=== PATIENT | male | born 2000 | race African-American/Black ===

== ENCOUNTER 2024-12-13 10:55 | Emergency (ER) | payer SELFPAY ==
--- NOTE | ~2024-12-13 | XR_ITS ---
EXAMINATION: XR tibia fibula LT 2V DATE: 12/13/2024 12:35 INDICATION: Left lower leg bruising. TECHNIQUE: 2 views of left tibia and fibula on 3 radiographs were obtained. COMPARISON: None. FINDINGS: Alignment is normal. No fracture. Joint spaces are normal. IMPRESSION: 1. No fracture. Reviewed, dictated and finalized at location L. IMPRESSION: 1. No fracture.
[2024-12-13 11:04] VITALS: BP 128/75; PULSE 95; RESP 16; TEMP 36.5; O2SAT 94
--- NOTE | 2024-12-13 12:46 | ED.LOWEXIN ---
HPI - Extremity Injury (Lower) General Chief Complaint: Extremity Injury, Lower Stated Complaint: L. leg, no trauma Time Seen by Provider: 12/13/24 12:02 History of Present Illness HPI Narrative: 23-year-old otherwise healthy male presenting to the emergency depart for evaluation of left leg pain. He has some minor swelling and erythema overlying his anterior fraser on the left side. No obvious fracture, no step-offs deformities. Distal pulses are 2+, no overlying skin changes such as induration, fluctuance, purulent drainage. No ulceration. No trauma that he reports but he does kick in his sleep and thinks he may have banged it on something. Did not take anything prior to arrival to the emergency department has not tried any anti-inflammatories. Otherwise healthy. Related Data Allergies Allergy/AdvReac Type Severity Reaction Status Date / Time No Known Allergies Allergy Verified 12/13/24 10:57 Review of Systems Review of Systems: As reviewed above in HPI Exam Narrative: GENERAL: [Well-appearing, well-nourished, and in no acute distress.] HEAD: [Normocephalic, atraumatic.] EYES: [PERRLA and EOMI.] ENT: Nares clear, no rhinorrhea or epistaxis. Mucous membranes moist. NECK: Supple. CHEST: [Clear to auscultation. No respiratory distress.] HEART: [Regular rate and rhythm]. No murmur heard. [Normal peripheral pulses.] ABDOMEN: [Soft, nondistended], [nontender], [No rigidity or guarding] EXTREMITIES: Minor area of swelling and minimal tenderness with palpation to the left anterior fraser without any overlying skin changes such as induration, dimpling, ulceration, bleeding. No calf swelling, no thigh swelling. No popliteal masses. 2+ dorsalis pedis pulse. Good range of motion SKIN: Warm, dry, no rash. NEURO: [No focal deficits]. Alert and oriented [x3.] PSYCH: [Normal mood and affect.] Course Vital Signs Vital signs: Vital Signs Temperature 36.5 C 12/13/24 11:04 Pulse Rate 95 12/13/24 11:04 Respiratory Rate 16 12/13/24 11:04 Blood Pressure 128/75 12/13/24 11:04 Pulse Oximetry 94 12/13/24 11:04 Oxygen Delivery Room Air 12/13/24 11:04 Temperature 36.5 C 12/13/24 11:04 Pulse Rate 95 12/13/24 11:04 Respiratory Rate 16 12/13/24 11:04 Blood Pressure 128/75 12/13/24 11:04 Pulse Oximetry 94 12/13/24 11:04 Oxygen Delivery Room Air 12/13/24 11:04 MDM - Extremity Injury (Lower) MDM Narrative Medical decision making narrative: 23-year-old male presenting with left anterior fraser pain. He has a small area of tenderness and overlying swelling to his left fraser but no signs of infection, no signs of cellulitis. No signs of DVT. He is otherwise healthy, 2+ pulses and warm well-perfused extremity. Normal vital signs. X-rays of the tib and fib were obtained to assess for any occult injury, bone fracture or osseous process although very unlikely given his overall well appearance exam. Most likely patient has a musculoskeletal bruise from occult injury. X-rays were obtained and independently reviewed, no signs of osseous injury or fracture. He can be discharged home at this time with recommendations for anti-inflammatories. He was provided ibuprofen here in the emergency department. Patient is safe for discharge at this time. Medical Records Attestation: I reviewed the patient's medical records. Imaging Data Attestation: I personally reviewed and interpreted this imaging study as follows: My impression: Impressions Tibia/Fibula X-Ray 12/13/24 12:39 IMPRESSION: 1. No fracture. Discharge Plan Discharge Clinical Impression: Fraser injury Patient Disposition: Home, Self-Care Condition: Stable Instructions: Antibiotic Form Additional Instructions: Your x-ray shows no acute process. Appears to have a small bruise to fraser, no signs of infection. Tylenol and ibuprofen for pain control. Follow-up with regular doctor. Return with any concerns. Patient Language: Djiboutian Follow-up/Referrals: UNKNOWN,DOCTOR [Primary Care Provider] - Time of Disposition: 12:49
[2024-12-13] MEDS: IBUPROFEN 600 MG TABLET PO (13:15)
[2024-12-13 13:26] VITALS: RESP 18
== END 2024-12-13 13:27 | disposition home or self-care (01) ==
PROVIDERS: Emergency Provider Student in an Organized Health Care Education/Training Program
DX: S89.92XA Unspecified injury of left lower leg, initial encounter (principal)
CPT/HCPCS: 73590; 99283; A9270

== ENCOUNTER 2025-02-13 19:31 | Emergency (ER) | payer SELFPAY ==
--- NOTE | ~2025-02-13 | XR_ITS ---
XR wrist RT min 3V Ordering provider: Teodoro Lazaro History: . fall . Comparison: None. FINDINGS: BONES: No acute fracture or dislocation. No definite scaphoid fracture. JOINT SPACES: Normal. SOFT TISSUES: Normal. IMPRESSION: No acute osseous abnormality right wrist. Reviewed, dictated and finalized at location A.
[2025-02-13 20:01] VITALS: BP 132/75; PULSE 96; RESP 20; TEMP 36.7; O2SAT 99
--- NOTE | 2025-02-13 23:27 | ED.UPPEXIN ---
HPI - Extremity Injury (Upper) General Chief Complaint: Extremity Injury, Upper Stated Complaint: Injury to right wrist Time Seen by Provider: 02/13/25 23:33 History of Present Illness HPI narrative: Patient is a 24-year-old male who presents to the ER with right wrist pain. He denies any injury to the area. Patient reports he woke up this morning and it hurt to flex his wrist. He endorses full range of motion in his fingers. Patient denies any swelling or bruising to the area. He denies any trauma to the area but reports “maybe I hurt a yesterday. Patient denies any other medical history relevant to this ER visit. Related Data Allergies Allergy/AdvReac Type Severity Reaction Status Date / Time No Known Allergies Allergy Verified 02/13/25 19:31 Review of Systems Review of Systems: All systems reviewed & are unremarkable except as noted in HPI and below Exam Narrative: Const: General: cooperati ve, healthy appear ing, comfortable, no acute distress, well developed, a lert and well nour ished Nutritional Appearance: well nourished Orienta tion/consciousness : patient oriented x3 Limitations: no limitations HENMT: Head: normal to in spection Ears: he aring grossly norm al bilaterally and external ears nor mal Face/Nose/Sin us: Normal externa l nose present, No rmal nares present , Normal nasal muc ous membranes and turbinates present , normal facial ex am and face symmet pineda Face and sinu s: normal facial e xam and face symme tric Eyes: General: appearanc e normal, both eye s and all related structures Alignm ent and Position: alignment normal Periorbital: perio rbital findings no rmal Pupils: Equa l, round and react luis f pupils present EOM: EOMs intact bilaterally Neck: Neck: normal visua l inspection, full ROM, no lymphaden opathy and no meni ngeal signs Chest: Chest palpation & inspection: normal inspection of the chest Resp: Effort & Inspectio n: normal respirat ory effort and abl e to speak in comp lete sentences Au scultation: clear to auscultation bi laterally, no crac kles, no rales, no rhonchi and no wh eezes Cardio: Rate: regular rate Rhythm: regular rhythm Back/Spine/Pelvis: Cervical Spine: ce rvical ROM normal Skin: General skin exam: normal color and no rashes or lesio ns noted Lesions: no lesions Rashe s: no rashes Woun ds: no wounds Neuro: General: patient o riented x3, gait n ormal, tone normal , moves all extrem ities and no menin geal signs Crania l nerves: Yes Equa l, round and react luis f pupils present Cognition (Neuro ): normal cognitio n Speech: normal speech Gait exam (Neuro): Normal ga it present Extrem: General except R w rist: normal to in spection, full ROM , capillary refill normal and normal gait. R wrist ten derness with flexi on and extension, no edema, radial p ulse present and n ormal capillary re fill, no deformity no unusual warmth , no abrasions, no lacerations, no e cchymosis, no crep itus, no foreign b odies and no punct ure wound, increas ed pain with manip ulation although m aintains full ROM. Psych: Appearance: grossl y normal and well kempt Mental Stat us: mental status grossly normal Sp eech and movement: Normal speech and movement present and Clear speech p resent Affect: no rmal affect Attit ude: cooperative Course Vital Signs Vital signs: Vital Signs Temperature 36.7 C 02/13/25 20:01 Pulse Rate 96 02/13/25 20:01 Respiratory Rate 20 02/13/25 20:01 Blood Pressure 132/75 02/13/25 20:01 Pulse Oximetry 99 02/13/25 20:01 Oxygen Delivery Room Air 02/13/25 20:01 Temperature 36.8 C 02/13/25 23:44 Pulse Rate 92 02/13/25 23:44 Respiratory Rate 17 02/13/25 23:44 Blood Pressure 128/76 02/13/25 23:44 Pulse Oximetry 99 02/13/25 23:44 Oxygen Delivery Room Air 02/13/25 20:01 MDM - Extremity Injury (Upper) MDM Narrative Medical decision making narrative: Patient is a 24-year-old male who presents to the ER with right wrist pain. He denies any injury to the area. Patient reports he woke up this morning and it hurt to flex his wrist. He endorses full range of motion in his fingers. Patient denies any swelling or bruising to the area. He denies any trauma to the area but reports “maybe I hurt a yesterday. Patient denies any other medical history relevant to this ER visit. Imaging Ordered: R hand x-ray Medications Ordered: Toradol 60mg IM Results: No acute osseous abnormality right wrist. Diagnosis: Right wrist sprain Patient Education/Shared MDM: Results of imaging shared with patient. He will be given a dose of Toradol pain medication and his R wrist will be placed in an ADA wrap. Patient strongly advised to maintain hydration status upon discharge and follow-up with their PCP or orthopedics as needed. They will be discharged home with no new prescriptions (besides Ibuprofen). Strict return precautions provided. Patient verbalized understanding and is in agreement with plan. Vital signs stable at time of discharge. All questions answered. Differential Diagnosis Differential diagnosis: Likely sprain and strain of wrist, fracture of wrist and other (fracture of hand) Imaging Data Attestation: I personally reviewed and interpreted this imaging study as follows: Radiologist's impression: Impressions Wrist X-Ray 02/13/25 20:58 IMPRESSION: No acute osseous abnormality right wrist. Discharge Plan Discharge Clinical Impression: Sprain and strain of wrist Patient Disposition: Home Condition: Stable Instructions: Antibiotic Form, Wrist Sprain (ED) Additional Instructions: Please return to the ER with any worsening symptoms. Follow-up with primary care provider or orthopedic surgery as needed. You may take Tylenol and ibuprofen for pain control. Patient Language: Prydeinig Prescriptions: New ibuprofen 600 mg tablet 600 mg PO TID PRN (Reason: pain) Qty: 20 0RF Follow-up/Referrals: Hussain Brandon MD [Physician] - (orthopedics ) UNKNOWN,DOCTOR [Primary Care Provider] - Stand Alone Forms: Work/School Release IP Time of Disposition: 23:33
[2025-02-13] MEDS: KETOROLAC (*BKC) 60 MG/2 ML VIAL IM (23:41)
[2025-02-13 23:44] VITALS: BP 128/76; PULSE 92; RESP 17; TEMP 36.8; O2SAT 99
== END 2025-02-13 23:46 | disposition home or self-care (01) ==
LOC: ANHED 23:41
PROVIDERS: Emergency Provider Registered Nurse
DX: S63.501A Unspecified sprain of right wrist, initial encounter (principal); X58.XXXA Exposure to other specified factors, initial encounter
CPT/HCPCS: 73110; 96372; 99283; J1885

== ENCOUNTER 2025-08-08 14:26 | Emergency (ER) | payer SELFPAY ==
[2025-08-08 14:34] VITALS: BP 132/73; PULSE 99; RESP 16; TEMP 36.7; O2SAT 96
--- NOTE | 2025-08-08 16:17 | ED_ITS ---
HPI - General Adult General Chief complaint: Unspecified Stated complaint: requesting a work note Time Seen by Provider: 08/08/25 16:20 Source: patient Mode of arrival: ambulatory Limitations: no limitations History of Present Illness HPI narrative: Patient is a 24 y/o male who presents to the ED with c/o URI sx's. Patient reports having URI sx's for the past few days. States he first developed a sore throat, which has since progressed to cough, congestion, rhinorrhea, subjective fevers. Reports last night he lost his taste and smell. Feels as though his taste/smell have returned today. Has been taking nyquil for sx's. Denies SOB. Related Data Allergies Allergy/AdvReac Type Severity Reaction Status Date / Time No Known Allergies Allergy Verified 02/13/25 19:31 Review of Systems Review of Systems: All systems reviewed & are unremarkable except as noted in HPI. All systems reviewed & are unremarkable except as noted in HPI and below Exam Narrative: GENERAL: Well appearing, thin, non-toxic, in no acute distress. HEAD: Normocephalic, atraumatic. RESPIRATORY: Airway patent, respirations nonlabored. Clear to auscultation bilaterally, no rales, rhonchi, wheezing. No focal lung sounds CARDIOVASCULAR: Regular rate and rhythm without murmurs, rubs, or gallops. MUSCULOSKELETAL: Moves all extremities. No gross deformities. SKIN: Warm, dry, normal color. NEURO: A&O X3. Speech clear. Cranial nerves II-XII grossly intact. Steady gait. No ataxic movements. PSYCHIATRIC: Appropriate mood and affect. Normal interaction. Course Vital Signs Vital signs: Vital Signs Temperature 98.1 F 08/08/25 14:34 Pulse Rate 99 08/08/25 14:34 Respiratory Rate 16 08/08/25 14:34 Blood Pressure 132/73 08/08/25 14:34 Pulse Oximetry 96 08/08/25 14:34 Temperature 98.1 F 08/08/25 14:34 Pulse Rate 99 08/08/25 14:34 Respiratory Rate 16 08/08/25 14:34 Blood Pressure 132/73 08/08/25 14:34 Pulse Oximetry 96 08/08/25 14:34 Medical Decision Making MDM Narrative Medical decision making narrative: MSE by DANAE in triage. Care resumed by myself. Patient with a 2 day history of URI symptoms. Tested negative for influenza, RSV, COVID, strep. Discussed high likelihood of viral URI and management of such. Will discharge with prescription for Tessalon Perles, given return precautions. Given work note. Discharged in stable condition. Medical Records Medical records reviewed: Yes I reviewed the external patient's medical records. Vital Signs Vital Signs: Vital Signs Temperature 98.1 F 08/08/25 14:34 Pulse Rate 99 08/08/25 14:34 Respiratory Rate 16 08/08/25 14:34 Blood Pressure 132/73 08/08/25 14:34 Pulse Oximetry 96 08/08/25 14:34 Temperature 98.1 F 08/08/25 14:34 Pulse Rate 99 08/08/25 14:34 Respiratory Rate 16 08/08/25 14:34 Blood Pressure 132/73 08/08/25 14:34 Pulse Oximetry 96 08/08/25 14:34 Lab Data Lab results reviewed: Yes I reviewed the patient's lab results. Labs: Lab Results 08/08/25 08/08/25 Range/Units 16:34 16:35 Influenza A (RT-PCR) Negative (Negative) Influenza B (RT-PCR) Negative (Negative) RSV (RT-PCR) Negative (Negative) SARS-CoV-2 RNA (RT-PCR) Negative (Negative) Group A Strep (PCR) Not detected (Negative) Discharge Plan Discharge Clinical Impression: Upper respiratory infection Qualifiers: URI type: unspecified URI Qualified Code(s): J06.9 - Acute upper respiratory infection, unspecified Patient Disposition: Home Condition: Stable Instructions: Antibiotic Form, Upper Respiratory Infection (ED), Viral Syndrome (ED), Cold Symptoms (ED) Additional Instructions: You tested negative for influenza A/B, RSV, COVID, and strep throat. You likely have a viral upper respiratory infection that should resolve on its own. Isolate at home as you are contagious. Stay well-hydrated at home. Recommend electrolyte rich fluids, Gatorade, Pedialyte, body armor. Utilize Tessalon Perles as needed for cough. Tylenol and Ibuprofen for discomfort and/or fevers. Recommend [id number] cough and cold medicines for symptom relief, Delsym, Mucinex, DayQuil, NyQuil, Sudafed, Robitussin, TheraFlu. Follow with primary care doctor upon resolution of symptoms. Return to the ED if you experience chest pain, difficulty breathing, unable to keep down food or drink, severe pain, or any other symptoms of concern. Patient Language: Georgian Prescriptions: New benzonatate 200 mg capsule 200 mg PO TID PRN (Reason: cough) Qty: 15 0RF No Action ibuprofen 600 mg tablet 600 mg PO TID PRN (Reason: pain) Qty: 20 0RF Follow-up/Referrals: UNKNOWN,DOCTOR [Primary Care Provider] Stand Alone Forms: Work/School Release IP Time of Disposition: 17:34
[2025-08-08 17:06] LABS: Strep Group A RT-PCR NOT DETECTED (Negative)
[2025-08-08 17:19] LABS: Influenza A QL RT-PCR Negative (Negative); Influenza B QL RT-PCR Negative (Negative); RSV RNA, RT-PCR Negative (Negative); SARS-CoV-2 RNA PCR Negative (Negative)
== END 2025-08-08 18:07 | disposition home or self-care (01) ==
LOC: ANHED 17:39
PROVIDERS: Emergency Provider Physician Assistant
DX: J06.9 Acute upper respiratory infection, unspecified (principal); Z20.822 Contact with and (suspected) exposure to COVID-19
CPT/HCPCS: 87637; 87651; 99283